=== PATIENT | male | born 2000 | race Caucasian/White ===

== ENCOUNTER 2022-04-01 05:22 | Emergency (ER) | payer SELFPAY ==
[2022-04-01] MEDS ORDERED: Alum Hydro/Mag Hydro/Simeth XS 15 ML, Metoclopramide 5 MG, Lidocaine 2% 5 ML PO ONE ×3 (06:18)
[2022-04-01 06:25] LABS: CARBON DIOXIDE,CO2 25.5 mmol/L (21.0-32.0)
[2022-04-01 08:11] LABS: C. TRACHOMATIS BY PCR NOT DETECTED; N. GONORRHOEAE BY PCR NOT DETECTED
== END 2022-04-01 08:40 | disposition home or self-care (01) ==
LOC: MW.ED 05:22
DX: R10.13 Epigastric pain (principal)
CPT/HCPCS: 36415; 80053; 84443; 85025; 87491; 87591; 99284; A9270